=== PATIENT | male | born 1990 | race Caucasian/White ===

== ENCOUNTER 2018-09-15 18:11 | Emergency (ER) | payer MEDICAID ==
[~2018-09-15] VITALS: Ht 177.8 cm; Wt 81.0 kg
[2018-09-15] MEDS ORDERED: HYDROCODONE/ACETAMINOPHEN 5/325MG TABLET PO ONE (19:00)
[2018-09-15 19:05] VITALS: BP 113/74
== END 2018-09-15 20:40 | disposition home or self-care (01) ==
LOC: ER 18:23
DX: M25.571 Pain in right ankle and joints of right foot (principal); M79.671 Pain in right foot
CPT/HCPCS: 73610; 73630; 99283